=== PATIENT | female | born 1985 | race Caucasian/White ===

== ENCOUNTER 2020-04-16 04:40 | Inpatient (IN) | payer OTHER ==
[2020-04-18] MEDS: Lactated Ringer's 1,000 ML IV SCH ×2 (05:15→06:27)
[2020-04-18 05:22] VITALS: BMI 30.9
[2020-04-18] MEDS ORDERED: Fentanyl 4 mcg/Bup 0.1% Cadd 100 ML ONE ×3 (05:23→05:26)
[2020-04-18] MEDS ORDERED: Acetaminophen 500 MG TAB PO PRN (05:25)
[2020-04-18] MEDS ORDERED: hydrALAZINE 20 MG/ML VIAL SLOW IVP PRN ×2 (05:25→10:14)
[2020-04-18] MEDS ORDERED: Butorphanol Tartrate 1 MG/ML VIAL SLOW IVP PRN (05:25)
[2020-04-18] MEDS ORDERED: Promethazine HCl 25 MG/ML VIAL IM PRN ×2 (05:25→06:22)
[2020-04-18] MEDS ORDERED: Ondansetron PF 4 MG/2 ML Vial IVP PRN ×3 (05:25→10:14)
[2020-04-18] MEDS ORDERED: NS w/ Oxytocin 10 units 500 ML IV SCH ×2 (05:30)
[2020-04-18] MEDS ORDERED: NS / Oxytocin 40 units/1000ml 1,000 ML IV SCH ×2 (05:30→10:14)
[2020-04-18] MEDS ORDERED: Lidocaine 1% (PF) 30 ML VIAL SC PRN (05:30)
[2020-04-18 05:31] LABS: Mean Corpuscular HGB CONC 32.6 g/dL (32.0-36.0); Mean Corpuscular Hemoglobin 29.4 pg (27.0-31.0); Mean Corpuscular Volume 90.3 fL (78.0-98.0); Mean Platelet Volume 7.7 fL (7.4-10.4); Platelet Count 257 thou/uL (130-400); RBC Distribution Width 12.7 % (11.5-14.5); Red Blood Cell (RBC) Count 4.41 mill/uL (4.20-5.40); White Blood Cell (WBC) Count 9.5 thou/uL (4.8-10.8)
[2020-04-18] MEDS ORDERED: diphenhydrAMINE 50 MG/ML VIAL IVP PRN (06:22)
[2020-04-18] MEDS ORDERED: Naloxone HCl 0.4 mg/ml Vial IVP PRN ×2 (06:22)
[2020-04-18] MEDS ORDERED: EPHEDRINE 25 MG/5 ML SYRINGE SLOW IVP PRN (06:22)
[2020-04-18] MEDS ORDERED: Lactated Ringer's 500 ML IV PRN (06:22)
[2020-04-18] MEDS ORDERED: Acetaminophen 325 MG TAB PO PRN (06:22)
[2020-04-18 06:23] LABS: Syphilis Antibody Nonreactive (Nonreactive); Syphilis Antibody Index 0.03 S/CO (<1.00 Non-Reactive)
[2020-04-18 06:25] LABS: HBSAg Index 0.15 S/CO (0-0.99); Hep B Surf Ag Non-Reactive S/CO (NonReactive)
[2020-04-18] MEDS ORDERED: Communication Order-Pharmacy FS SCH (06:30)
[2020-04-18] MEDS ORDERED: Fentanyl 4 mcg/Bupivacaine 0.1% Cassette 100 ML EPIDURAL SCH (06:30)
--- NOTE | 2020-04-18 09:44 | PDOC.LDHP ---
Labor and Delivery H&P Chief complaint: contractions HPI: 34yo at 39.4 by LMP with painful contractions. Current gestational age (weeks): 39 Due date: 04/24/20 Dating criteria: last menstrual period Grav: 2 Para: 1 Current complications: none Abnormal US findings: No Past Medical History: denies Current medications: pre- vitamins Previous surgical history: other (oral surgery) Allergies/Adverse Reactions: Allergies Allergy/AdvReac Type Severity Reaction Status Date / Time No Known Drug Allergies Allergy Verified 04/18/20 04:47 Social history: none - Physical Exam Vital signs reviewed and normal: yes General: NAD Heart: RRR Lungs: CTAB Abdomen: gravid Extremeties: no edema FHT: category 1 [place] contractions every: 3min - Vaginal Exam cm dilated: 8 Effacement: 90% Station: 0 (arom clear) - OB Labs Blood type: A RH: positive Antibody Screen: negative HIV: negative RPR: negative HEPSAg: negative 1 hour GCT: negative GBS: negative Urine drug screen: negative Rubella: immune - Assessment L&D Assessment: term patient in labor - Plan Plan: admit to L&D, labor augmentation if indicated, informed consent obtained, anesthesia consult for pain management
--- NOTE | 2020-04-18 09:45 | PDOC.OPDEL ---
OB Operative/Delivery Note Delivery Dr/Surgeon: Nathaniel Assist: n/a Pre-Delivery Diagnosis: active labor Procedure/Post Delivery Dx: spontaneous vaginal delivery Weeks gestation: 39 Anesthesia: epidural - Findings A Sex: male - 1 min: 9 - 5 min: 9 - Additional Findings/Plan Placenta delivered: spontaneous Repaired Obstetrical Laceration: none Estimated blood loss: 200cc Post delivery plan: routine recovery
[2020-04-18] MEDS ORDERED: Milk Of Magnesia 30 ML UDCUP PO PRN (10:14)
[2020-04-18] MEDS ORDERED: Benzocaine-Menthol 82.5 ML CAN TOP PRN (10:14)
[2020-04-18] MEDS ORDERED: diphenhydrAMINE 25 MG CAP PO PRN (10:14)
[2020-04-18] MEDS ORDERED: Lanolin Ointment 7 GM TUBE TOP PRN (10:14)
[2020-04-18] MEDS ORDERED: Preparation H Ointment 28 GM TUBE PR PRN (10:14)
[2020-04-18] MEDS ORDERED: HYDROcodone/Acetaminophen 5/325 mg Tablet PO PRN ×2 (10:14)
[2020-04-18] MEDS ORDERED: Adacel (T-DAP) 0.5 ML SYRINGE IM ONE (10:14)
[2020-04-18] MEDS ORDERED: Bisacodyl 10 MG SUPP PR PRN (10:14)
[2020-04-18] MEDS: Ibuprofen 800 MG TAB PO SCH ×2 (11:01→22:40)
[2020-04-18 12:15] LABS: SARS-CoV-2 MS2 Positive; SARS-CoV-2 N Gene Negative; SARS-CoV-2 S Gene Negative; SARS-CoV-2 by NAA Not Detected (NotDetected); SARS-CoV-2 orf1ab Negative
[2020-04-18] MEDS ORDERED: Bupivacaine/Epinephrine 0.25% 30 ML VIAL ONE (15:35)
[2020-04-18] MEDS: Ferrous Sulfate 325 MG TAB PO SCH (17:59)
[2020-04-18] MEDS: Docusate Calcium (SURFAK) 240 MG CAP PO SCH (22:40)
[2020-04-19] MEDS: Ibuprofen 800 MG TAB PO SCH ×2 (06:10→12:51)
--- NOTE | 2020-04-19 08:04 | PDOC.PP ---
Post Progress Note Post Day #: 1 PO intake tolerated: yes Flatus: yes Ambulation: yes Vital Signs (12 hours) Temp Pulse Resp BP 04/19/20 04:40 98.3 F 71 14 104/67 04/19/20 00:00 98.7 F 64 14 114/71 Weight Weight 180 lb - Physical Examination General: NAD Respiratory: non-labored breathing Abdominal: no distention, appropriately TTP Fundus firm & at: umb-2 Skin: no rash Neurological: no gross focal deficits Psychiatric: normal affect Result Diagrams: 04/18/20 05:23 Additional Labs: Post Labs Blood Type A POSITIVE 04/18/20 05:23 Hep Bs Antigen Non-Reactive S/CO (NonReactive) 04/18/20 05:23 - Assessment/Plan PPD1 s/p TSVD VSSAF Doing well lochia < menses Rh pos RImm DC home FU 6w
[2020-04-19] MEDS: Docusate Calcium (SURFAK) 240 MG CAP PO SCH (08:15)
[2020-04-19] MEDS: Ferrous Sulfate 325 MG TAB PO SCH (08:18)
[2020-04-19 08:25] VITALS: BP 106/67; TEMP 97.9
[2020-04-19] MEDS ORDERED: Prenatal Vitamin 1 TAB PO SCH (09:00)
== END 2020-04-19 16:00 | disposition home or self-care (01) | DRG 807 ==
LOC: EDSTATUS 04:40 → L&D 04-18 04:42 → 3SW 04-18 11:38
PROVIDERS: ADMIT Student in an Organized Health Care Education/Training Program; ATTEND Student in an Organized Health Care Education/Training Program
PROC: 10E0XZZ Delivery of Products of Conception, External Approach (ICD-10-PCS; principal; 2020-04-18)
DX: O80 Encounter for full-term uncomplicated delivery (principal); Z37.0 Single live birth; Z3A.39 39 weeks gestation of pregnancy
CPT/HCPCS: 36415; 51702; 85027; 86780; 86850; 86900; 86901; 87340; 87635; 99285; U0003